=== PATIENT | female | born 1980 | race Caucasian/White ===

== ENCOUNTER 2017-05-18 10:29 | Emergency (ER) | payer MEDICAID ==
[2017-05-18 15:50] VITALS: BP 115/76
== END 2017-05-18 15:50 | disposition home or self-care (01) ==
LOC: ED 10:29
DX: N60.41 Mammary duct ectasia of right breast (principal); Z88.6 Allergy status to analgesic agent; Z98.82 Breast implant status
CPT/HCPCS: 76641

== ENCOUNTER 2017-05-22 19:04 | Emergency (ER) | payer MEDICAID ==
[2017-05-22 23:45] VITALS: BP 109/55
== END 2017-05-22 23:45 | disposition home or self-care (01) ==
LOC: ED 19:04
DX: N64.52 Nipple discharge (principal); N64.4 Mastodynia

== ENCOUNTER 2018-01-24 18:49 | Emergency (ER) | payer MEDICAID ==
[~2018-01-24] VITALS: Ht 157.5 cm; Wt 54.9 kg
[2018-01-24 18:53] VITALS: Ht 157.5 cm; Wt 54.9 kg
[2018-01-24 19:49] VITALS: BP 106/59
== END 2018-01-24 19:49 | disposition home or self-care (01) ==
LOC: ED 18:49
DX: J30.9 Allergic rhinitis, unspecified (principal); R07.89 Other chest pain; Z88.6 Allergy status to analgesic agent

== ENCOUNTER 2018-09-27 14:05 | Emergency (ER) | payer MEDICAID ==
[~2018-09-27] VITALS: Ht 157.5 cm; Wt 57.2 kg
[2018-09-27 14:38] VITALS: Ht 157.5 cm; Wt 57.2 kg
[2018-09-27 15:07] LABS: BASOPHIL % 0.6 % (0-2); PLATELET COUNT 221 x10^3mcL (130-400); RED CELL DISTRIBUTION WIDTH 13.9 % (11.5-14.5)
[2018-09-27 15:24] LABS: CALCIUM 8.9 mg/dL (8.5-10.1); CARBON DIOXIDE 30.6 mmol/L (21-32); CREATININE SERUM 1.1 mg/dL (0.6-1.0); POTASSIUM SERUM 4.4 mmol/L (3.5-5.1)
[2018-09-27 15:27] LABS: BILIRUBIN TOTAL 0.61 mg/dL (0.20-1.00); TOTAL PROTEIN, SERUM 7.8 g/dL (6.4-8.2)
[2018-09-27 17:24] VITALS: BP 140/72
== END 2018-09-27 17:24 | disposition home or self-care (01) ==
LOC: ED 14:05
PROVIDERS: Emergency Medicine
DX: N83.202 Unspecified ovarian cyst, left side (principal); H92.01 Otalgia, right ear; Z88.8 Allergy status to other drugs, medicaments and biological substances
CPT/HCPCS: 36415

== ENCOUNTER 2020-05-28 22:40 | Emergency (ER) | payer MEDICAID | END 2020-05-29 00:30 | disposition home or self-care (01) | LOC: ED | DX: J32.9 Chronic sinusitis, unspecified (principal) | CPT/HCPCS: J1885 ==

== ENCOUNTER 2020-07-30 14:10 | Emergency (ER) | payer MEDICAID ==
[~2020-07-30] VITALS: Ht 157.5 cm; Wt 55.8 kg
[2020-07-30 14:20] VITALS: Ht 157.5 cm; Wt 55.8 kg
[2020-07-30 16:44] VITALS: BP 110/76
== END 2020-07-30 16:44 | disposition home or self-care (01) ==
LOC: ED 14:10
DX: K14.0 Glossitis (principal); Z98.890 Other specified postprocedural states; Z88.6 Allergy status to analgesic agent